=== PATIENT | female | born 1940 | race Caucasian/White ===

== ENCOUNTER 2020-11-16 12:05 | Outpatient (CLI) | payer MEDICARE, OTHER ==
[2020-11-16 13:08] LABS: BASOPHILS % (AUTO) 0.1 % (0-1); EOSINOPHILS % (AUTO) 0 % (0-6); HEMATOCRIT 40.6 % (35.0-45.0); HEMOGLOBIN 13.4 g/dl (12.0-16.0); LYMPHOCYTES # (AUTO) 0.5 X10'3 (1.1-4.8); LYMPHOCYTES % (AUTO) 10.4 % (21-51); MEAN CORPUSCULAR HEMOGLOBIN 29.9 PG (27.0-31.0); MEAN CORPUSCULAR HGB CONC 32.9 g/dL (33.0-36.5); MEAN CORPUSCULAR VOLUME 90.8 FL (78-98); MEAN PLATELET VOLUME 9.9 FL (7.4-10.4); MONOCYTES % (AUTO) 0.6 % (2-12); NEUTROPHILS # (AUTO) 4.4 X10'3 (1.8-7.7); NEUTROPHILS % (AUTO) 88.9 % (42-75); PLATELET COUNT 296 X10'3 (140-440); RED BLOOD COUNT 4.47 X10'6 (4.20-5.60); RED CELL DISTRIBUTION WIDTH 14.4 % (11.5-14.5)
[2020-11-16 13:15] LABS: PARTIAL THROMBOPLASTIN TIME 26 SECONDS (22-32)
[2020-11-16 13:17] LABS: ALANINE AMINOTRANSFERASE 28 U/L (12-78); ALKALINE PHOSPHATASE 130 IU/L (46-116); ANION GAP 11 (8-16); ASPARTATE AMINO TRANSFERASE 24 U/L (10-37); BILIRUBIN,TOTAL 0.3 MG/DL (0.1-1.0); BLOOD UREA NITROGEN 27 MG/DL (7-18); BUN/CREATININE RATIO 25.7 (6.6-38.0); CALCIUM 9.8 MG/DL (8.5-10.1); CHLORIDE 104 MMOL/L (99-107); CREATININE 1.05 MG/DL (0.40-0.90); GLUCOSE 149 MG/DL (70-104); POTASSIUM 4.3 MMOL/L (3.5-5.1); SODIUM 139 MMOL/L (135-145); TOTAL CARBON DIOXIDE 23.8 MMOL/L (24-32); TOTAL PROTEIN 8.2 G/DL (6.4-8.2); eGFR 51 ML/MIN
[2020-11-16 14:30] VITALS: BP 155/72
[2020-11-16 14:40] VITALS: BP 145/79
[2020-11-16 14:50] VITALS: BP 126/72
[2020-11-16 15:20] VITALS: BP 120/78
== END 2020-11-16 23:59 | disposition home or self-care (01) ==
LOC: VAS 12:05
PROVIDERS: ATTEND Internal Medicine Cardiovascular Disease
DX: I35.0 Nonrheumatic aortic (valve) stenosis (principal); K43.5 Parastomal hernia without obstruction or gangrene; N13.30 Unspecified hydronephrosis; K57.30 Diverticulosis of large intestine without perforation or abscess without bleeding; I65.29 Occlusion and stenosis of unspecified carotid artery; K76.0 Fatty (change of) liver, not elsewhere classified; I70.0 Atherosclerosis of aorta; K55.1 Chronic vascular disorders of intestine; J43.9 Emphysema, unspecified; I51.7 Cardiomegaly; J47.9 Bronchiectasis, uncomplicated; R91.8 Other nonspecific abnormal finding of lung field; I45.10 Unspecified right bundle-branch block
CPT/HCPCS: 36415; 71046; 71275; 74174; 80053; 85025; 85610; 85730; 93005; 93880

== ENCOUNTER 2020-11-19 10:04 | Outpatient (CLI) | payer MEDICARE, OTHER ==
[~2020-11-19 10:04] MED LIST: iohexol 350 MG/ML 50ML vial IV ONE; iohexol 350MG/ML 100ml bottle IV ONE; metoprolol tartrate 1mg/ml inj IV ONE
== END 2020-11-19 23:59 | disposition home or self-care (01) ==
LOC: RT 10:04
PROVIDERS: ATTEND Internal Medicine Cardiovascular Disease
DX: I35.0 Nonrheumatic aortic (valve) stenosis (principal); R06.02 Shortness of breath; I65.29 Occlusion and stenosis of unspecified carotid artery
CPT/HCPCS: 94010; 94727; 94729; Q9967; J3490

== ENCOUNTER 2020-11-29 15:24 | Outpatient (CLI) | payer MEDICARE, OTHER ==
[~2020-11-29] VITALS: Ht 160 cm; Wt 57.1 kg
[2020-11-29 17:48] VITALS: BP 163/69
[2020-12-06] MEDS ORDERED: ATOR40TA72 PO (09:58)
[2020-12-06] MEDS ORDERED: ERGO400C PO (09:58)
[2020-12-06] MEDS ORDERED: PARO10TA4 PO (09:58)
[2020-12-06] MEDS ORDERED: ASPI-611 PO (09:58)
== END 2020-11-29 23:59 | disposition home or self-care (01) ==
LOC: TAVR 15:24
PROVIDERS: ATTEND Internal Medicine Cardiovascular Disease
DX: I35.0 Nonrheumatic aortic (valve) stenosis (principal); R06.02 Shortness of breath; I65.29 Occlusion and stenosis of unspecified carotid artery

== ENCOUNTER 2021-01-14 10:26 | Outpatient (CLI) | payer MEDICARE, OTHER ==
[~2021-01-14 10:26] MED LIST changes: +ASPI-611 PO; +ATOR40TA72 PO; +ERGO400C PO; +PARO10TA4 PO; -iohexol 350 MG/ML 50ML vial IV ONE; -iohexol 350MG/ML 100ml bottle IV ONE; -metoprolol tartrate 1mg/ml inj IV ONE
== END 2021-01-14 23:59 | disposition home or self-care (01) ==
LOC: CARD DIAG 10:26
PROVIDERS: ATTEND Internal Medicine Cardiovascular Disease
DX: I34.0 Nonrheumatic mitral (valve) insufficiency (principal); I45.10 Unspecified right bundle-branch block
CPT/HCPCS: 93005; 93306